=== PATIENT | male | born 1960 | race Caucasian/White ===

== ENCOUNTER 2022-08-03 05:58 | Day surgery (SDC) | payer BC ==
--- NOTE | 2022-08-02 11:58 | HP ---
DATE OF SURGERY: 08/03/2022 HISTORY OF PRESENT ILLNESS: The patient is a 62-year-old male presents with complaints of abdominal pain for over a year. He has discomfort in the right mid, right lower abdomen. Worse with laying on that side. The patient four years ago had a colonoscopy with some polyps removed. He has a minimal umbilical hernia on physical exam. PAST MEDICAL HISTORY: Thyroid, hypertension, hyperlipidemia, coronary artery disease. PAST SURGICAL HISTORY: Back surgery. ALLERGIES: NKDA. MEDICATIONS: Levothyroxine, Pepcid, Niacin, fish oil, Tricor, Lipitor, isosorbide mononitrate, losartan, Plavix, metoprolol. FAMILY HISTORY: None. SOCIAL HISTORY: No alcohol. REVIEW OF SYSTEMS: CONSTITUTIONAL: Denies fever or chills. CHEST: Denies shortness of breath. CVS: Denies chest pain. ABDOMEN: Reports abdominal pain. PHYSICAL EXAMINATION: GENERAL: No acute distress. CHEST: Nonlabored. No shortness of breath. CVS: Regular rate and rhythm. ABDOMEN: Soft. IMPRESSION: History of colon polyps and abdominal pain. PLAN: CT scan has been ordered. Colonoscopy with Dr. Martin Carlson. As dictated by Debby Roque NP.
[2022-08-03] MEDS ORDERED: Lactated Ringers 1,000 ML IV SCH (07:00)
[2022-08-03] MEDS ORDERED: Xylocaine-Mpf 2% 5 Ml Vial ONE (10:11)
[2022-08-03] MEDS ORDERED: Versed 2 MG/2 ML Injection ONE (10:12)
[2022-08-03] MEDS ORDERED: DIPRIVAN 200 MG/20 ML IV ONE ×2 (10:12→10:22)
[2022-08-03 11:15] VITALS: BP 126/75; PULSE 66; O2SAT 94
--- NOTE | 2022-08-03 13:20 | OP ---
SURGERY DATE/TIME: 08/03/2022 1010 PREOPERATIVE DIAGNOSIS: Follow up of polyps. POSTOPERATIVE DIAGNOSIS: Two - 4 mm polyps in the sigmoid. PROCEDURES: 1) Colonoscopy complete to cecum. 2) Hot polypectomy x2 in one jar distal sigmoid. SURGEON: Martin Carlson M.D. SKIN THERAPIST: Mason Conn, [facility]. ANESTHESIA: MAC. COMPLICATIONS: None. PREP SCORE: Excellent. WITHDRAWAL TIME: 6 minutes. PHOTOS: Ileocecal valve and appendiceal orifice. INDICATION: A patient presents for follow up of polyps. DESCRIPTION OF PROCEDURE: Taken to the endoscopy room. Left lateral decubitus position. Anal digital examination satisfactory. Scope advanced to the cecum. Base of the cecum, ileocecal valve normal. There was a band 8 inches up to the cecum which precluded initial entry into the cecum and the patient's colon was fairly long and it was a little tricky getting up through this and to the cecum despite this it was clearly obtained. Appendiceal orifice was normal. The ascending colon was normal. Hepatic flexure normal. Transverse, splenic, descending, sigmoid, rectum, anus. Distal sigmoid two - 4 mm polyps picked up and taken with hot biopsy forceps. There were no diverticula in the area. There were no diverticula today. The patient did have a CT scan. We will see him back in the office for path report and follow up and discuss the CT scan.
== END 2022-08-03 11:25 | disposition home or self-care (01) ==
LOC: SDC 05:58
PROVIDERS: ATTEND Surgery
DX: Z09 Encounter for follow-up examination after completed treatment for conditions other than malignant neoplasm (principal); Z86.010 Personal history of colon polyps; K63.5 Polyp of colon
CPT/HCPCS: J2250; J2704